=== PATIENT | female | born 1940 | race Caucasian/White ===

== ENCOUNTER 2022-08-27 15:04 | Observation (INO) ==
[2022-08-27 16:52] LABS: Basophils % 0.5 %; Eosinophils # 0.2 K/mcL (0.0-0.6); Eosinophils % 3.2 %; Hematocrit 42.9 % (35.3-44.9); Hemoglobin 13.8 g/dL (11.5-15.4); Immature Granulocytes % 0.2 % (0-4); Lymphocytes # 1.7 K/mcL (0.6-4.6); Lymphocytes % 25.2 %; Mean Corpuscular HGB Conc 32.2 g/dL (31.6-35.5); Mean Corpuscular Hemoglobin 29.5 pg (28.0-33.3); Mean Corpuscular Volume 91.7 fL (83.0-100.0); Mean Platelet Volume 12.1 fL (9.4-12.4); Monocytes # 0.5 K/mcL (0.0-1.3); Monocytes % 7.9 %; Neutrophils # 4.2 K/mcL (1.6-8.9); Platelet Count 148 K/mcL (140-400); Red Blood Count 4.68 M/mcL (3.82-4.97); Red Cell Distribution Width 14.1 % (11.5-14.5); White Blood Count 6.6 K/mcL (4.3-11.1)
[2022-08-27 17:13] LABS: BUN/Creatinine Ratio 15 (6-26); Blood Urea Nitrogen 18 mg/dL (8-23); Calcium 10.2 mg/dL (8.6-10.3); Carbon Dioxide 26 mEq/L (23-29); Chloride 105 mEq/L (98-107); Glucose 108 mg/dL (70-105); Osmolality,Calculated 290 (280-300); Potassium 3.8 mEq/L (3.5-5.1); Sodium 139 mEq/L (136-145); Troponin I < 0.03 ng/mL (< 0.04)
[2022-08-27] MEDS ORDERED: Aspirin 325 MG TABLET PO ONE (19:51)
[2022-08-27] MEDS ORDERED: NIFEdipine Immed Rel 10 MG CAPSULE PO ONE (20:01)
[2022-08-27] MEDS ORDERED: Melatonin 3 MG TABLET PO PRN (20:03)
[2022-08-27] MEDS ORDERED: Naloxone 0.4 MG/ML INJ IVP PRN (20:03)
[2022-08-27] MEDS ORDERED: Ondansetron ODT 4 MG TAB.RAPDIS SL PRN (20:03)
[2022-08-27] MEDS ORDERED: Nitroglycerin 0.4 MG TAB.SUBL SL PRN (21:41)
[2022-08-28] MEDS ORDERED: Regadenoson 0.4 MG/5 ML SYRINGE IVP ONE (06:09)
[2022-08-28 06:18] LABS: Hematocrit 39.7 % (35.3-44.9); Hemoglobin 12.8 g/dL (11.5-15.4); Mean Corpuscular HGB Conc 32.2 g/dL (31.6-35.5); Mean Corpuscular Hemoglobin 29.2 pg (28.0-33.3); Mean Corpuscular Volume 90.6 fL (83.0-100.0); Mean Platelet Volume 12.1 fL (9.4-12.4); Platelet Count 134 K/mcL (140-400); Red Blood Count 4.38 M/mcL (3.82-4.97); Red Cell Distribution Width 13.9 % (11.5-14.5); White Blood Count 7.1 K/mcL (4.3-11.1)
[2022-08-28 06:38] LABS: BUN/Creatinine Ratio 13 (6-26); Blood Urea Nitrogen 15 mg/dL (8-23); Calcium 9.6 mg/dL (8.6-10.3); Carbon Dioxide 26 mEq/L (23-29); Chloride 106 mEq/L (98-107); Glucose 96 mg/dL (70-105); Magnesium 1.9 mg/dL (1.6-2.6); Osmolality,Calculated 291 (280-300); Phosphorous 3.8 mg/dL (2.7-4.5); Potassium 3.5 mEq/L (3.5-5.1); Sodium 140 mEq/L (136-145); Troponin I < 0.03 ng/mL (< 0.04)
[2022-08-28 06:44] VITALS: O2SAT 98
[2022-08-28] MEDS ORDERED: carvediloL 6.25 MG TABLET PO SCH ×2 (08:00→12:00)
[2022-08-28 11:07] VITALS: BP 155/77; PULSE 58; TEMP 97.6
== END 2022-08-28 14:24 | disposition home or self-care (01) ==
LOC: EMEROOARM 15:04 → 3BNU 15:04 → SUATTDRO 20:32 → 3BNU 20:57
PROVIDERS: ADMIT Internal Medicine; ATTEND Registered Nurse